=== PATIENT | male | born 1985 | race Caucasian/White ===

== ENCOUNTER → 2018-09-16 12:00 | Day surgery (SDC) | payer SELFPAY ==
--- NOTE | 2018-09-13 16:45 | HP ---
HISTORY AND PHYSICAL: DATE OF ADMISSION: 09/16/18 DATE OF VISIT: 09/12/18 HISTORY OF PRESENT ILLNESS: Willian is a healthy, active 33-year-old who made a jump at [employer] [place] on 09/09/18. He lost control of the right ski and broke his right ankle. He was splinted at [facility] and comes here for followup. He is unable to bear weight on the ankle. 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 He is relatively healthy otherwise. He has had no previo us problems with the ankle. His workup today in the office shows him to have medial and lateral tend erness and small shift of the mortise. So, the plan at this point will be an internal fixation of his right distal fibula. He is 227 pounds. PAST MEDICAL HISTORY: He has no history of any medical illness including depression or anxiety. CURRENT MEDICATIONS: Willian is not on any active medications. ALLERGIES: He has no allergies to any medications. SOCIAL HISTORY: He smokes socially. He does not drink heavily more than 4 to 5 drinks per week. REVIEW OF SYSTEMS: Negative for all 12 systems except for a sore throat, runny nose. PHYSICAL EXAMINATION GENERAL: Willian is a healthy-appearing young male of relatively normal height and weight. He is alert . No significant distress. NECK: He has a supple neck. CHEST: His chest exam is clear to auscultation in all lung tidwell. CARDIAC: Shows him to have prominent hear sounds. Regular rate. No extra sounds noted. ABDOMEN: Flat, nontender. Lower GI deferred. GENITOURINARY: Deferred. NEUROLOGICAL: Deferred. EXTREMITIES: Show him to have significant edema at the lateral malleolus with some early ecchymosis. He has a one sensate foot. He is able to dorsiflex to neutral. Tenderness is significant at the di stal fibula, but not over the peroneus and there is tenderness at the medial deltoid. IMPRESSION AND PLAN: The patient with shifted Romero B type ankle fracture with some evidence of del toid disruption. Plan at this point will be internal fixation of his right ankle. The patient under stands the postoperative course, the need to be nonweightbearing. He has a possible situation with h is girlfriend and brother to help him and the surgery will be scheduled in the near future. [id number]/[facility] #: [id number]
[~2018-09-16 12:00] MED LIST: Acetaminophen TAB* 325 MG PO PRN; Buffered Lidocaine 1% SYRIN* 1 ML/SYRINGE INTRADERM ONE; Bupivacaine 0.5%* 50 ML VIAL ONE; Dexamethasone IV* 4 MG/ML 1 ML (4 MG) IV SLOW PU ONE; Dexamethasone IV* 4 MG/ML 1 ML (4 MG) ONE; DiMENhydriNATE IV* 50 MG/ML VIAL IV PUSH PRN; Famotidine IV* 10 MG/ML 2 ML (20 mg) IV ONE; Famotidine IV* 10 MG/ML 2 ML (20 mg) ONE; HYDROcodone/ACETAMIN 5-325 MG* 1 TAB PO PRN; KETAMINE HCL* 50 MG/ML 10 ML VIAL ONE; Ketorolac INJ* 30 MG/ML 1 ML VIAL IV PRN; Ketorolac INJ* 30 MG/ML 1 ML VIAL ONE; Lactated Ringers 1000 ML Bag* 1,000 ML IV SCH; Lidocaine 2% PF * 5 ML VIAL ONE; Midazolam* 1 MG/ML 5 ML VIAL (5 MG) ONE; Morphine 4 MG/ML VIAL (1 ml) 4 MG/ML VIAL ONE; Morphine INJ* 10 MG/ML 1 ML CARPUJECT IV PRN; Naloxone* 0.4 MG/ML 1 ML VIAL IV PRN; Ondansetron INJ* 2 MG/ML VIAL ONE; Propofol* 10 MG/ML 20 ML BTL ONE; ceFAZolin 2 GM in NS PREMIX(*) 2 GM/100 ML BAG IVPB ONE; diPHENhydraMINE IV* 50 MG/ML 1 ml VIAL (BENADRYL) IV PRN; fentaNYL* 50 MCG/ML 2 ML VIAL (100 MCG VIAL) ONE; oxyCODONE/Acetamin 5/325 MG* TAB ONE; oxyCODONE/Acetamin 5/325 MG* TAB PO PRN
[2018-09-16] MEDS: fentaNYL* 50 MCG/ML 2 ML VIAL (100 MCG VIAL) IV PRN ×5 (16:11→16:31)
[2018-09-16] MEDS: oxyCODONE/Acetamin 5/325 MG* TAB PO PRN ×2 (16:22→16:42)
[2018-09-16] MEDS: Morphine INJ* 2 MG/ML 1 ML SYRINGE (TWO MG - NEW SYRINGE VERSION) IV PRN ×2 (16:44→17:00)
[2018-09-16 19:55] VITALS: BP 123/81
--- NOTE | 2018-10-29 01:53 | OP ---
DATE OF OPERATION: 09/16/18 - SDS DATE OF : 87 SURGEON: Sonny Pagan MD SHEET FED PRINTER: Anna Medina PA-C PRE-OP DIAGNOSIS: Right ankle fracture. POST-OP DIAGNOSIS: Right ankle fracture. OPERATIVE PROCEDURE: Internal fixation, right distal fibula. DESCRIPTION OF PROCEDURE: The patient was taken to the operating room where lateral longitudinal incision was made over the distal fibula. We isolated the oblique fracture, exposing the posterior and lateral aspect of the distal fibula. We lengthened the fibula using a crab claw clamp and then placed a pin temporarily longitudinally in the bone. It was then fashioned to one third tubular plate along the posterolateral aspect of the fibula using back to front lag screw in the central portion as well as posterior to anterior cortical screws. X-rays intraoperatively showed satisfactory position of the hardware, the bone and the ankle mortise. We then irrigated thoroughly, closing with 2-0 Vicryl, kathleen for the skin. A compression dressing plaster splint applied. [id number]/[facility] #: [id number] [facility]
== END | disposition home or self-care (01) ==
LOC: OR 12:00
PROVIDERS: ATTEND Orthopaedic Surgery
DX: S82.61XA Displaced fracture of lateral malleolus of right fibula, initial encounter for closed fracture (principal); V00.321A Fall from snow-skis, initial encounter; Y93.23 Activity, snow (alpine) (downhill) skiing, snowboarding, sledding, tobogganing and snow tubing; Y92.39 Other specified sports and athletic area as the place of occurrence of the external cause
CPT/HCPCS: 76000; A9270-GY; C1713; J0690; J1100; J1885; J2250; J2270; J2405; J2704; J3010; J3490